=== PATIENT | male | born 1965 | race Caucasian/White ===

== ENCOUNTER → 2018-04-10 | Outpatient (CLI) | payer BC, OTHER ==
[~2018-04-10] MED LIST: HUMALOG100 UNIT/1 SUBQ; IRON325 PO; LANTUS SUBQ; NORCO 7.5-3251 EACH PO; PROTONIX40 M1 PO; ZOSYN 2.25 GR2.25 GM IV
== END ==
LOC: MRI 09:09
DX: M86.8X7 Other osteomyelitis, ankle and foot (principal); E11.621 Type 2 diabetes mellitus with foot ulcer; E11.42 Type 2 diabetes mellitus with diabetic polyneuropathy; M19.071 Primary osteoarthritis, right ankle and foot; M25.471 Effusion, right ankle; M25.771 Osteophyte, right ankle; M62.571 Muscle wasting and atrophy, not elsewhere classified, right ankle and foot

== ENCOUNTER 2019-11-21 23:27 | Emergency (ER) | payer OTHER, BC ==
[~2019-11-21] VITALS: Ht 190.5 cm; Wt 108.9 kg
[~2019-11-21 23:27] MED LIST changes: +PERCOCET 7.5-31 EACH PO
[2019-11-21 23:34] VITALS: BP 122/71
[2019-11-22 01:38] LABS: HEMOGLOBIN 11.8 gm/dL (14.0-18.0); MCH 31.3 pg (26.0-34.0); MCHC 33.7 g/dL (28.0-37.0); MCV 92.7 fL (80.0-100.0); PLATELET COUNT 153 thou/uL (150-400); RBC 3.78 mil/uL (4.50-6.00); RDW 12.5 % (10.5-14.5); WBC 21.2 thou/uL (4.0-11.0)
[2019-11-22 01:41] LABS: CALCIUM 8.5 mg/dL (8.5-10.1); CREATININE 1.7 mg/dL (0.7-1.3); POTASSIUM 4.3 mmol/L (3.5-5.1)
[2019-11-22] MEDS ORDERED: LORCET 5-325 M1 EACH PO (01:57)
[2019-11-22 02:54] LABS: ABSOLUTE NEUTROPHILS 15.9 thou/uL (1.4-8.2)
[2019-11-22 02:55] LABS: URINE BILIRUBIN NEGATIVE (Negative); URINE BLOOD 3+ (Negative); URINE CLARITY CLEAR; URINE COLOR YELLOW; URINE GLUCOSE-RANDOM* TRACE (Negative); URINE KETONES NEGATIVE (Negative); URINE LEUKOCYTES-REFLEX NEGATIVE (Negative); URINE NITRITE-REFLEX NEGATIVE (Negative); URINE PROTEIN (DIPSTICK) 2+ (Negative)
[2019-11-22 02:55] LABS: PLATELET ESTIMATE NORMAL
[2019-11-22 03:38] LABS: BACTERIA-REFLEX None Seen /HPF (None Seen); CASTS None Seen /LPF (None Seen); CRYSTALS None Seen /LPF (None Seen); MUCUS 0-3 Light strn/LPF (None Seen); SQUAMOUS 0-3 Few /LPF (0-3); URINE RBC 3-10 Few /HPF (0-2); URINE WBC-REFLEX None Seen /HPF (0-5)
[2019-11-22 06:01] VITALS: BP 118/67
[2019-11-22 16:02] VITALS: BP 107/63
== END 2019-11-22 16:04 | disposition home or self-care (01) ==
LOC: ER 23:27 → EROBS 11-22 05:00 → ER 11-22 16:04
PROVIDERS: Emergency Medicine
DX: A41.9 Sepsis, unspecified organism (principal); L03.115 Cellulitis of right lower limb; E87.1 Hypo-osmolality and hyponatremia; D50.9 Iron deficiency anemia, unspecified; R19.7 Diarrhea, unspecified; R05 Cough; R50.9 Fever, unspecified; E11.9 Type 2 diabetes mellitus without complications; K21.9 Gastro-esophageal reflux disease without esophagitis; Z20.828 Contact with and (suspected) exposure to other viral communicable diseases; Z86.14 Personal history of Methicillin resistant Staphylococcus aureus infection; Z79.4 Long term (current) use of insulin; Z79.899 Other long term (current) drug therapy; Z98.890 Other specified postprocedural states; W20.8XXA Other cause of strike by thrown, projected or falling object, initial encounter; Y93.89 Activity, other specified; Y92.89 Other specified places as the place of occurrence of the external cause; Y99.8 Other external cause status